=== PATIENT | male | born 1965 | race Caucasian/White ===

== ENCOUNTER 2025-01-19 08:07 | Day surgery (SDC) | payer BC, SELFPAY ==
[2025-01-05 09:50] VITALS: BMI 27.0
[2025-01-05 10:19] LABS: % Basophils 0.5 % (0-2); % Eosinophils 2.8 % (0-6); % Immature Granulocytes 0.2 % (0-0.5); % Lymphocytes 32.5 % (20.5-51.1); % Monocytes 8.2 % (1.7-9.3); % Neutrophils 55.8 % (42.2-75.2); Absolute Eosinophils 0.1 10^3/uL (0-0.7); Absolute Lymphocytes 1.4 10^3/uL (1.2-3.4); Absolute Monocytes 0.4 10^3/uL (0.1-0.6); Absolute Neutrophils 2.4 10^3/uL (1.4-6.5); Hematocrit 45.3 % (39.0-52.0); Hemoglobin 15.2 g/dL (13.0-18.0); Mean Corp Hgb Conc. 33.6 g/dL (33.0-37.0); Mean Corpuscular Volume 95.4 fL (80.0-94.0); Mean Platelet Volume 10.3 fL (7.4-10.4); Nucleated Red Blood Cells % 0 % (-); Platelet Count 183 10^3/uL (130-400); Red Blood Cell Count 4.75 10^6/uL (4.70-6.10); Red Cell Dist. Width 11.9 % (11.5-14.5); White Blood Cell Count 4.3 10^3/uL (4.8-10.8)
[2025-01-05 10:24] LABS: ALT (SGPT) 30 U/L (0-50); AST (SGOT) 33 U/L (17-59); Albumin 4.7 g/dl (3.5-5.0); Alkaline Phosphatase 58 U/L (38-126); Blood Urea Nitrogen 19 mg/dl (9-20); Calcium 8.9 mg/dl (8.4-10.2); Carbon Dioxide 31 mmol/L (22-30); Chloride 107 mmol/L (98-107); Estimated Creatinine Clearance 86 ml/min; Glucose 97 mg/dl (70-99); Magnesium 2.3 mg/dl (1.6-2.3); Potassium 4.1 mmol/L (3.5-5.1); Sodium 143 mmol/L (135-145); Total Bilirubin 0.8 mg/dl (0.2-1.3); Total Protein 7.1 g/dl (6.3-8.2); eGFR > 60.00
[2025-01-05 10:28] LABS: INR 1.59; PT 19.4 Sec (11.4-14.6)
[2025-01-19] VITALS (10 sets, daily range): BP systolic 99–145; BP diastolic 72–91; BMI 25.8
--- NOTE | 2025-01-19 12:00 | ITS.CL.ABL ---
[employer] - Ablation
Ablation
Procedure Report:
ELECTROPHYSIOLOGY ABLATION STUDY
DATE:: January 19, 2025 REFERRING: Dr. Lamonte Sy
INDICATION: Paroxysmal supraventricular tachycardia in the form of atrial fibrillation. Also 1 tracing in the past demonstrating atrial flutter unspecified mechanism. This was on flecainide and the patient did also notice regular tachycardia
symptoms which abated once flecainide was withdrawn.
HISTORY: See H and P. As above
ANTIARRHYTHMIC DRUG: Flecainide
PRE-PROCEDURE NORMA: No atrial thrombus on intracardiac ultrasound
PRESENTING RHYTHM: Atrial fibrillation which spontaneously converted with anesthesia
'TIME-OUT': called and confirmed.
SEDATION/ANESTHESIA: provided via the anesthesia department using general anesthesia (LMA).
INTRAVENOUS/ARTERIAL ACCESS:
Right femoral venous - 10 Fr, 8Fr
Left femoral venous - 6 Fr
Ultrasound guidance for bilateral femoral vein access was utilized by me to obtain access with demonstration of normal anatomy
CHADS-VASC Score:
HAS-Bled Score
PROCEDURE:
1. A decapolar CS catheter was placed within the CS for mapping and pacing. This was also used as the reference catheter for the 3-D map.
2. The intracardiac ultrasound catheter was positioned in the RA to identify the FO for targeting of transseptal puncture, assist in identification of the pulmonary vein ostia, monitoring pre and post ablation pulmonary vein flow velocities,
monitoring for 'bubble' formation during RF application as a sign of thermal injury, and to monitor for pericardial effusion during mapping and ablation procedure. Left atrial size, LV ejection fraction, and pulmonary vein flows were monitored
pre and post ablation procedure. The other valves were inspected and found to be free of significant regurgitation or stenosis.
3. Half of the calculated heparin bolus was administered prior to the first transeptal puncture. Transseptal puncture was performed to diagnose RA and LA pressure so that safety of LA mapping and ablation could be further assessed, and to access
the left atrium and pulmonary veins for mapping and ablation. This entailed advancing an 10 Lao Agilis with dilator into the superior vena cava and withdrawing both (monitoring intracardiac ultrasound, fluoroscopy and tip pressure) with the tip
oriented toward the atrial septum. The fossa ovalis was engaged (indicated by sudden displacement of the sheath tip as well as tenting of the fossa seen on intracardiac ultrasound). Left atrial access required a pass with the [place] needle
extended. Left atrial catheter position was confirmed by pressure monitoring (RA mean pressure 8 mm Hg and LA mean presure 14 mm Hg), LA saturation (99%), as well as fluoroscopy. The sheath was advanced over the dilator and positioned in the left
atrium. This procedure was repeated for the Agilis sheath. The remainder of the calculated heparin bolus was administered and heparin was
infused to maintain ACT at 300 -350 seconds throughout the case.
4. RA pacing was performed via the proximal decapolar poles and LA pacing was performed via the distal decapolr poles.
5. A quadrapolar catheter was first positioned at the His position for His Bundle recording which was tagged via the 3-D Navex sytem, and then passed to the RVA for RV pacing and recording.
6. The Lattice catheter was placed on each of the LIPV, LSPV, RSPV and the RIPV.
7. Next, a 3-D map was created using Navex. A 3-D reconstructed CT image was compared to the 3-D Navex map to assist in anatomic interpretation, mapping and ablation. The CT image and the NavX image were fused.
8. The PFA catheter mean initial electroanatomic show and then an [place] ablation around the left and right veins plus a posterior wall box set and substrate ablation the left and right pulmonary veins as well as the roof posterior wall and
floor of the left atrium were isolated with entrance and exit block confirmed. This would address any posterior wall roof or left atrial floor flutter mechanisms. The patient presented in atrial fibrillation but converted to sinus rhythm prior to
left atrial access.
9. After isolation as above in #8 aggressive burst pacing down to 260 ms which was left and right atrial refractoriness there was no other inducible flutters or tachyarrhythmias. Atrial extrastimuli did not induce any other atrial tach arrhythmias
or SVT and there was no evidence for dual abdiel physiology. There was normal sinus node function.
TOTAL FLOURO TIME: 12.6 minutes
TOTAL RF DURATION: 0 minutes
REVERSAL OF HEPARIN: 45 mg of protamine, slow IV administration
[id number] stitch to bilateral groins
COMPLICATIONS:
None
Intracardiac US shows no pericardial effusion post ablation.
SUMMARY:
Complex left atrial mapping and ablation.
Pulmonary vein isolation as well as roof posterior wall and floor of the left atrium electrical isolation with PFA. Noninducible for other tachyarrhythmias after isolation as above.
RECOMMENDATIONS:
1. Ambulate in 4 hours
2. Resume anticoagulation which would be lifelong given his prior history of TIA
3. Discontinue flecainide
4. Reasonable to continue diltiazem for 1 to 3 months
Copy to: Dr. Lamonte Sy
[2025-01-19 13:20] LABS: ACT-LR - POC > 397 Seconds (116-155)
[2025-01-19 13:20] LABS: ACT-LR - POC > 397 Seconds (116-155)
[2025-01-19] MEDS: ANESTHETIC LOZENGE 1 LOZENGE PO (13:28)
--- NOTE | 2025-01-19 16:10 | W.PN.UPDATE ---
Addendum entered and electronically signed by TALI Christopher 01/19/25 16:13:
He will stop flecainide 100mg
Original Note:
Update Note
Progress Note Update
59 yo WM s/p PVI (same day). He denies cp, sob, chalo diet, voiding, EKG SR, b/l groins c/d/i no HT, soft. He will resume Xarelto tonight and continue diltiazem. Activity restrictions reviewed. He will f/u Dr. Gregory in 3 mo then continue cardiac
care with Dr. Sy. He is for d/c home after 5pm if groins stable.
== END 2025-01-19 17:01 | disposition home or self-care (01) ==
LOC: CATH 08:07
PROVIDERS: ATTENDING PHYSICIAN Internal Medicine Cardiovascular Disease; OTHER PHYSICIAN Internal Medicine Cardiovascular Disease
DX: I48.0 Paroxysmal atrial fibrillation (principal); Z79.899 Other long term (current) drug therapy; I48.92 Unspecified atrial flutter; Z86.73 Personal history of transient ischemic attack (TIA), and cerebral infarction without residual deficits; Z79.01 Long term (current) use of anticoagulants
CPT/HCPCS: C1894; C1730; C1892; 36415; 75572; 80053; 83735; 85025; 85347; 85610; 86850; 86900; 86901; 93005; 93656; 93657; C1733; Q9967